=== PATIENT | male | born 1960 | race African-American/Black ===

== ENCOUNTER 2018-12-09 01:56 | Emergency (ER) | payer SELFPAY ==
[~2018-12-09] VITALS: Ht 182.9 cm; Wt 80.0 kg
[2018-12-09] MEDS ORDERED: TETANUS, DIPHTHERIA, PERTUSSIS VAC/PF 0.5ML (>7YR OLD) IM ONE (03:00)
[2018-12-09] MEDS ORDERED: BACITRACIN ZINC OINT UDPKT TOP ONE (03:00)
[2018-12-09 04:30] VITALS: BP 173/85
== END 2018-12-09 04:48 | disposition left against medical advice (07) ==
LOC: ER 01:56
DX: S01.01XA Laceration without foreign body of scalp, initial encounter (principal); S60.511A Abrasion of right hand, initial encounter; I10 Essential (primary) hypertension; V49.88XA Car occupant (driver) (passenger) injured in other specified transport accidents, initial encounter; Y93.89 Activity, other specified; Y92.89 Other specified places as the place of occurrence of the external cause; Y99.8 Other external cause status
CPT/HCPCS: 70450; 72125; 90471; 90715; 99284; A4217; Z7610